=== PATIENT | male | born 1990 | race Caucasian/White ===

== ENCOUNTER 2020-06-30 16:08 | Inpatient (IN) | payer OTHER ==
[~2020-06-30] VITALS: Ht 193 cm; Wt 125.0 kg
[2020-06-30 18:24] LABS: BASOPHILS % (AUTO) 0.3 % (0.0-2.0); EOSINOPHILS % (AUTO) 0.2 % (1.0-6.0); HEMATOCRIT 40.9 % (41-53); HEMOGLOBIN 13.3 g/dL (13.5-17.5); LYMPHOCYTES # (AUTO) 1.8 K/uL (1.0-4.8); LYMPHOCYTES % (AUTO) 8.6 % (22.0-44.0); MEAN CORPUSCULAR HEMOGLOBIN 28.5 pg (26.0-34.0); MEAN CORPUSCULAR HGB CONC 32.4 G/dL (31.0-37.0); MEAN CORPUSCULAR VOLUME 88 fL (80-100); MONOCYTES # (AUTO) 1.4 K/uL (0.1-1.0); MONOCYTES % (AUTO) 6.8 % (2.0-9.0); NEUTROPHILS # (AUTO) 17.2 K/uL (1.8-7.7); NEUTROPHILS % (AUTO) 84.1 % (40.0-70.0); PLATELET COUNT (AUTO) 314 K/uL (150-450); RED BLOOD CELL COUNT(AUTO) 4.66 MIL/uL (4.50-5.90); RED CELL DISTRIBUTION WIDTH 15.2 % (11.5-14.5)
[2020-06-30 18:34] LABS: ANION GAP 7 mmol/L (8-16); CALCIUM, TOTAL 9.3 mg/dL (8.8-10.5); CARBON DIOXIDE 30 mmol/L (22-29); CHLORIDE 103 mmol/L (98-107); CREATININE 0.69 mg/dL (0.60-1.30); GLOMERULAR FILTR. RATE CALC > 60 mL/min (>60); GLUCOSE,RANDOM 97 mg/dL (70-110); POTASSIUM 4.2 mmol/L (3.5-5.1); SODIUM SERUM 140 mmol/L (136-145); UREA NITROGEN, BLOOD 16 mg/dL (7-18)
[2020-06-30 18:42] LABS: ALANINE AMINOTRANSFERASE 88 U/L (12-78); ALBUMIN 3.6 g/dL (3.4-5.0); ALKALINE PHOSPHATASE 87 U/L (46-116); ASPARTATE AMINOTRANSFERASE 49 U/L (15-37); BILIRUBIN,TOTAL 0.8 mg/dL (0.1-1.0); TOTAL PROTEIN, SERUM 7.7 g/dL (6.4-8.2)
[2020-06-30] MEDS ORDERED: CefTRIAXone 1 GM/DEXTROSE 50 ML IV ONE (18:45)
[2020-06-30] MEDS ORDERED: SODIUM CHLORIDE 0.9% 3,400 ML IV ONE (18:45)
[2020-06-30] MEDS ORDERED: VANCOMYCIN HCL 1 GM/D5% WATER 200 ML IV ONE (18:45)
[2020-06-30] MEDS: ACETAMINOPHEN 325 MG TABLET PO ONE ×2 (19:16→19:18)
[2020-06-30] MEDS ORDERED: SODIUM CHLORIDE 0.9% 1,000 ML IV ONE (19:45)
[2020-06-30] MEDS ORDERED: ACETAMINOPHEN 325 MG TABLET PO PRN (19:45)
[2020-06-30] MEDS ORDERED: ONDANSETRON HCL 4 MG/2 ML VIAL IVP PRN (19:45)
[2020-06-30] MEDS ORDERED: ZOLPIDEM TARTRATE 5 MG TABLET PO PRN (19:45)
[2020-06-30 20:02] LABS: COVID AG,FIA SOURCE NASAL SWAB
[2020-06-30 21:30] VITALS: BP 123/72
[2020-06-30] MEDS: DOCUSATE SODIUM 100 MG CAPSULE PO SCH (21:54)
[2020-06-30 23:35] VITALS: BP 126/65
[2020-07-01] MEDS: HEPARIN SODIUM,PORCINE 5,000 UNITS/ML VIAL SQ SCH ×4 (00:38→23:37)
[2020-07-01 04:40] VITALS: BP 101/59
[2020-07-01 06:19] LABS: BASOPHILS % (AUTO) 0.4 % (0.0-2.0); EOSINOPHILS % (AUTO) 0 % (1.0-6.0); HEMATOCRIT 38.2 % (41-53); HEMOGLOBIN 12.6 g/dL (13.5-17.5); LYMPHOCYTES # (AUTO) 2.3 K/uL (1.0-4.8); MEAN CORPUSCULAR HEMOGLOBIN 29.5 pg (26.0-34.0); MEAN CORPUSCULAR VOLUME 89 fL (80-100); MONOCYTES # (AUTO) 0.9 K/uL (0.1-1.0); MONOCYTES % (AUTO) 5.7 % (2.0-9.0); NEUTROPHILS # (AUTO) 12.2 K/uL (1.8-7.7); NEUTROPHILS % (AUTO) 78.9 % (40.0-70.0); PLATELET COUNT (AUTO) 235 K/uL (150-450); RED BLOOD CELL COUNT(AUTO) 4.28 MIL/uL (4.50-5.90); RED CELL DISTRIBUTION WIDTH 15.5 % (11.5-14.5)
[2020-07-01] MEDS: FAMOTIDINE 20 MG TABLET PO SCH (08:14)
[2020-07-01] MEDS: DOCUSATE SODIUM 100 MG CAPSULE PO SCH ×2 (08:14→20:09)
[2020-07-01 08:25] VITALS: BP 94/53
[2020-07-01 11:07] VITALS: BP 109/64
[2020-07-01] MEDS ORDERED: VANCOMYCIN HCL 1 GM/D5% WATER 200 ML IV ONE ×2 (12:00→18:00)
[2020-07-01] MEDS ORDERED: SODIUM CHLORIDE 0.9% 0 ML ONE (12:26)
[2020-07-01] MEDS ORDERED: SODIUM CHLORIDE 0.9% 500 ML IV ONE (12:28)
[2020-07-01 15:09] LABS: APPEARANCE,URINE CLOUDY (CLEAR); BILIRUBIN,URINE NEGATIVE (NEGATIVE); GLUCOSE, URINE (UA) NEGATIVE (NEGATIVE); KETONES,URINE NEGATIVE (NEGATIVE); LEUKOCYTE ESTERASE ,URINE NEGATIVE (NEGATIVE); NITRATE,URINE NEGATIVE (NEGATIVE); OCCULT BLOOD,URINE NEGATIVE (NEGATIVE); PH,URINE 7.5 (5.0-8.0); PROTEIN,URINE TRACE (NEGATIVE)
[2020-07-01 15:14] LABS: AMPHET/METH SCREEN,URINE POSITIVE (NEGATIVE); BARBITURATE SCREEN, URINE NEGATIVE (NEGATIVE); BENZODIAZEPINES SCREEN,URINE NEGATIVE (NEGATIVE); CANNABINOID SCREEN,URINE NEGATIVE (NEGATIVE); COCAINE SCREEN,URINE NEGATIVE (NEGATIVE); METHADONE SCREEN, URINE NEGATIVE (NEGATIVE); OPIATE SCREEN,URINE NEGATIVE (NEGATIVE)
[2020-07-01 15:15] LABS: PHENCYCLIDINE SCREEN,URINE NEGATIVE (NEGATIVE)
[2020-07-01 15:27] LABS: BACTERIA,URINE Few /HPF (None Seen); RBC,URINE None Seen /HPF (0-2); WBC,URINE 0-2 /HPF (0-5)
[2020-07-01 15:28] LABS: SQUAMOUS EPITHELIAL CELL,UR Rare /LPF (None Seen)
[2020-07-01 16:24] VITALS: BP 114/67
[2020-07-01 20:30] VITALS: BP 114/66
[2020-07-01] MEDS: VANCOMYCIN HCL 1.5 GM in DEXTROSE 5%-WATER 250 ML IV SCH (23:37)
[2020-07-02 04:55] VITALS: BP 116/64
[2020-07-02 07:53] VITALS: BP 142/88
[2020-07-02] MEDS: VANCOMYCIN HCL 1.5 GM in DEXTROSE 5%-WATER 250 ML IV SCH (08:00)
[2020-07-02] MEDS: HEPARIN SODIUM,PORCINE 5,000 UNITS/ML VIAL SQ SCH ×2 (08:00→16:00)
[2020-07-02] MEDS: DOCUSATE SODIUM 100 MG CAPSULE PO SCH ×2 (08:25→20:56)
[2020-07-02] MEDS: FAMOTIDINE 20 MG TABLET PO SCH (08:25)
[2020-07-02] MEDS ORDERED: LORazepam 2 MG/ML VIAL IVP PRN (12:30)
[2020-07-02] MEDS ORDERED: LOPERAMIDE HCL 2 MG CAPSULE PO PRN (12:30)
[2020-07-02] MEDS ORDERED: DICYCLOMINE HCL 10 MG CAPSULE PO PRN (12:30)
[2020-07-02] MEDS ORDERED: METOCLOPRAMIDE HCL 5 MG/ML 2 ML VIAL IVP PRN (12:30)
[2020-07-02] MEDS: ACETAMINOPHEN/CODEINE 300-15 MG TABLET PO PRN (20:55)
[2020-07-02 21:00] VITALS: BP 128/61
[2020-07-02] MEDS ORDERED: TEMAZEPAM 15 MG CAPSULE PO SCH (21:00)
[2020-07-02 23:24] VITALS: BP 124/72
[2020-07-03 05:20] VITALS: BP 130/73
[2020-07-03 07:36] VITALS: BP 121/77
[2020-07-03] MEDS: FAMOTIDINE 20 MG TABLET PO SCH (08:03)
[2020-07-03] MEDS: DOCUSATE SODIUM 100 MG CAPSULE PO SCH (08:03)
[2020-07-03] MEDS: HEPARIN SODIUM,PORCINE 5,000 UNITS/ML VIAL SQ SCH ×2 (08:03)
[2020-07-03] MEDS: ACETAMINOPHEN/CODEINE 300-15 MG TABLET PO PRN (08:14)
[2020-07-03] MEDS ORDERED: LEVOFLOXACIN 750 MG TABLET PO SCH (09:00)
[2020-07-03] MEDS ORDERED: LEVO750T68 PO (12:07)
== END 2020-07-03 15:05 | DRG 603 ==
LOC: EMS 16:08 → 6S 19:33
PROVIDERS: ADMIT Internal Medicine; ATTEND Internal Medicine
DX: L03.115 Cellulitis of right lower limb (principal); R65.10 Systemic inflammatory response syndrome (SIRS) of non-infectious origin without acute organ dysfunction; I89.0 Lymphedema, not elsewhere classified; J45.909 Unspecified asthma, uncomplicated; Z53.20 Procedure and treatment not carried out because of patient's decision for unspecified reasons; Z87.891 Personal history of nicotine dependence; Z20.822 Contact with and (suspected) exposure to COVID-19; F19.10 Other psychoactive substance abuse, uncomplicated
CPT/HCPCS: 83605; 85379; 87040; 87426; 93971; 99285; A9575; G0480; J0696; J1644; J3370; J7030; J7040; J7050; J7060; 36415-L1; 36415-TC; 71045-TC

== ENCOUNTER 2021-05-05 19:37 | Inpatient (IN) | payer OTHER ==
[~2021-05-05] VITALS: Ht 193 cm; Wt 114.6 kg
[~2021-05-05 19:37] MED LIST: LEVO750T68 PO
[2021-05-05] MEDS ORDERED: VANCOMYCIN HCL 1 GM/D5% WATER 200 ML IV ONE (20:30)
[2021-05-05] MEDS ORDERED: 0.9% SODIUM CHLORIDE 10 ML SYRINGE IVP PRN (20:30)
[2021-05-05] MEDS ORDERED: ACETAMINOPHEN 500 MG TABLET PO ONE (20:30)
[2021-05-05] MEDS ORDERED: CLINDAMYCIN 600 MG/D5% WATER 50 ML IV ONE (20:30)
[2021-05-05] MEDS ORDERED: POTA10PI PO (21:17)
[2021-05-05] MEDS ORDERED: FURO20 PO (21:17)
[2021-05-05 21:36] LABS: COVID AG,FIA SOURCE NASOPHARYNGEAL
[2021-05-05 21:59] LABS: BASOPHILS % (AUTO) 0.9 % (0.0-2.0); EOSINOPHILS % (AUTO) 3.5 % (1.0-6.0); HEMOGLOBIN 14.5 g/dL (13.5-17.5); LYMPHOCYTES % (AUTO) 32.6 % (22.0-44.0); MEAN CORPUSCULAR HEMOGLOBIN 30.2 pg (26.0-34.0); MEAN CORPUSCULAR HGB CONC 33.8 G/dL (31.0-37.0); MEAN CORPUSCULAR VOLUME 89 fL (80-100); MONOCYTES # (AUTO) 0.9 K/uL (0.1-1.0); MONOCYTES % (AUTO) 9.4 % (2.0-9.0); NEUTROPHILS # (AUTO) 4.9 K/uL (1.8-7.7); NEUTROPHILS % (AUTO) 53.6 % (40.0-70.0); PLATELET COUNT (AUTO) 256 K/uL (150-450); RED BLOOD CELL COUNT(AUTO) 4.81 MIL/uL (4.50-5.90); RED CELL DISTRIBUTION WIDTH 16.7 % (11.5-14.5)
[2021-05-05 22:05] LABS: ANION GAP 3 mmol/L (8-16); CALCIUM, TOTAL 8.8 mg/dL (8.8-10.5); CARBON DIOXIDE 31 mmol/L (22-29); CHLORIDE 106 mmol/L (98-107); CREATININE 0.84 mg/dL (0.60-1.30); GLOMERULAR FILTR. RATE CALC > 60 mL/min (>60); GLUCOSE,RANDOM 72 mg/dL (70-110); POTASSIUM 4.4 mmol/L (3.5-5.1); SODIUM SERUM 140 mmol/L (136-145); UREA NITROGEN, BLOOD 15 mg/dL (7-18)
[2021-05-05 22:13] LABS: LACTIC ACID 0.9 mmol/L (0.4-2.0)
[2021-05-05] MEDS ORDERED: ONDANSETRON HCL 4 MG/2 ML VIAL IVP PRN (22:15)
[2021-05-05 22:19] LABS: ALANINE AMINOTRANSFERASE 95 U/L (12-78); ALBUMIN 3.7 g/dL (3.4-5.0); ALKALINE PHOSPHATASE 65 U/L (46-116); ASPARTATE AMINOTRANSFERASE 42 U/L (15-37); BILIRUBIN,TOTAL 0.6 mg/dL (0.1-1.0); TOTAL PROTEIN, SERUM 7.5 g/dL (6.4-8.2)
[2021-05-05 23:44] VITALS: BP 107/73
[2021-05-06] MEDS ORDERED: SODIUM CHLORIDE 0.9% 500 ML IV ONE (00:12)
[2021-05-06] MEDS ORDERED: VANCOMYCIN HCL 1 GM/D5% WATER 200 ML IV ONE (00:30)
[2021-05-06] MEDS: HEPARIN SODIUM,PORCINE 5,000 UNITS/ML VIAL SQ SCH ×4 (00:50→23:39)
[2021-05-06] MEDS: CefTRIAXone 1 GM/DEXTROSE 50 ML IV SCH (03:40)
[2021-05-06] MEDS: ACETAMINOPHEN 325 MG TABLET PO PRN ×3 (04:45→20:45)
[2021-05-06 05:13] VITALS: BP 116/70
[2021-05-06 08:42] VITALS: BP 105/69
[2021-05-06] MEDS: VANCOMYCIN HCL 1.5 GM in DEXTROSE 5%-WATER 250 ML IV SCH ×3 (08:58→23:39)
[2021-05-06 16:36] VITALS: BP 124/79
[2021-05-06] MEDS: BuPROPion HCL 100 MG SR TABLET PO SCH (20:39)
[2021-05-06 20:50] VITALS: BP 120/71
[2021-05-07] MEDS: CefTRIAXone 1 GM/DEXTROSE 50 ML IV SCH (02:06)
[2021-05-07 04:27] VITALS: BP 113/38
[2021-05-07 08:28] VITALS: BP 114/72
[2021-05-07 08:54] LABS: ANION GAP 15 mmol/L (8-16); CALCIUM, TOTAL 8.8 mg/dL (8.8-10.5); CARBON DIOXIDE 28 mmol/L (22-29); CHLORIDE 103 mmol/L (98-107); CREATININE 0.69 mg/dL (0.60-1.30); GLOMERULAR FILTR. RATE CALC > 60 mL/min (>60); GLUCOSE,RANDOM 87 mg/dL (70-110); POTASSIUM 4.2 mmol/L (3.5-5.1); SODIUM SERUM 146 mmol/L (136-145); UREA NITROGEN, BLOOD 9 mg/dL (7-18); VANCOMYCIN,RANDOM 14.5 mcg/mL (25.0-50.0)
[2021-05-07] MEDS: BuPROPion HCL 100 MG SR TABLET PO SCH ×2 (09:16→22:05)
[2021-05-07] MEDS: FUROSEMIDE 20 MG TABLET PO SCH (09:16)
[2021-05-07] MEDS: HEPARIN SODIUM,PORCINE 5,000 UNITS/ML VIAL SQ SCH ×2 (09:16→16:05)
[2021-05-07] MEDS: VANCOMYCIN HCL 1.5 GM in DEXTROSE 5%-WATER 250 ML IV SCH ×2 (09:17→16:06)
[2021-05-07] MEDS: HYDROCODONE/ACETAMINOPHEN 5-325 MG TABLET PO PRN ×2 (13:06→22:05)
[2021-05-07 16:12] VITALS: BP 118/73
[2021-05-07] MEDS: ACETAMINOPHEN 325 MG TABLET PO PRN (16:26)
[2021-05-07 20:10] VITALS: BP 109/71
[2021-05-08] MEDS: VANCOMYCIN HCL 1.5 GM in DEXTROSE 5%-WATER 250 ML IV SCH ×3 (00:31→16:00)
[2021-05-08] MEDS: HEPARIN SODIUM,PORCINE 5,000 UNITS/ML VIAL SQ SCH ×4 (00:32→23:55)
[2021-05-08] MEDS ORDERED: SODIUM CHLORIDE 0.9% 500 ML IV ONE (00:37)
[2021-05-08] MEDS: CefTRIAXone 1 GM/DEXTROSE 50 ML IV SCH (02:00)
[2021-05-08 05:25] VITALS: BP 126/79
[2021-05-08] MEDS: FUROSEMIDE 20 MG TABLET PO SCH (07:47)
[2021-05-08] MEDS: HYDROCODONE/ACETAMINOPHEN 5-325 MG TABLET PO PRN ×2 (07:47→16:21)
[2021-05-08 08:34] VITALS: BP 153/86
[2021-05-08] MEDS: BuPROPion HCL 100 MG SR TABLET PO SCH ×2 (09:06→20:08)
[2021-05-08 12:23] VITALS: BP 116/76
[2021-05-08] MEDS: ACETAMINOPHEN 325 MG TABLET PO PRN (14:00)
[2021-05-08 16:46] VITALS: BP 117/85
[2021-05-08 20:27] VITALS: BP 117/83
[2021-05-08] MEDS ORDERED: DOXYCYCLINE HYCLATE 100 MG TABLET PO SCH (22:15)
[2021-05-09] MEDS: VANCOMYCIN HCL 1.5 GM in DEXTROSE 5%-WATER 250 ML IV SCH ×4 (00:09→23:25)
[2021-05-09] MEDS: HYDROCODONE/ACETAMINOPHEN 5-325 MG TABLET PO PRN ×3 (00:15→20:08)
[2021-05-09 00:44] VITALS: BP 128/66
[2021-05-09] MEDS: CefTRIAXone 1 GM/DEXTROSE 50 ML IV SCH (02:29)
[2021-05-09 08:27] VITALS: BP 104/70
[2021-05-09] MEDS: BuPROPion HCL 100 MG SR TABLET PO SCH ×2 (10:47→20:07)
[2021-05-09] MEDS: FUROSEMIDE 20 MG TABLET PO SCH (10:48)
[2021-05-09] MEDS: HEPARIN SODIUM,PORCINE 5,000 UNITS/ML VIAL SQ SCH ×3 (10:48→23:25)
[2021-05-09 17:01] VITALS: BP 115/75
[2021-05-09] MEDS: ACETAMINOPHEN 325 MG TABLET PO PRN (18:44)
[2021-05-09 21:19] VITALS: BP 127/71
[2021-05-10] MEDS: CefTRIAXone 1 GM/DEXTROSE 50 ML IV SCH (01:19)
[2021-05-10 01:40] VITALS: BP 116/72
[2021-05-10] MEDS: HYDROCODONE/ACETAMINOPHEN 5-325 MG TABLET PO PRN ×3 (04:19→21:46)
[2021-05-10 05:26] VITALS: BP 116/62
[2021-05-10 08:06] VITALS: BP 116/67
[2021-05-10] MEDS: VANCOMYCIN HCL 1.5 GM in DEXTROSE 5%-WATER 250 ML IV SCH ×4 (10:00→23:28)
[2021-05-10] MEDS: HEPARIN SODIUM,PORCINE 5,000 UNITS/ML VIAL SQ SCH ×3 (10:01→23:28)
[2021-05-10] MEDS: BuPROPion HCL 100 MG SR TABLET PO SCH ×2 (10:01→20:00)
[2021-05-10] MEDS: FUROSEMIDE 20 MG TABLET PO SCH (10:01)
[2021-05-10 14:45] LABS: ANION GAP 8 mmol/L (8-16); CALCIUM, TOTAL 9.4 mg/dL (8.8-10.5); CARBON DIOXIDE 29 mmol/L (22-29); CHLORIDE 101 mmol/L (98-107); CREATININE 0.85 mg/dL (0.60-1.30); GLOMERULAR FILTR. RATE CALC > 60 mL/min (>60); GLUCOSE,RANDOM 93 mg/dL (70-110); POTASSIUM 4.4 mmol/L (3.5-5.1); SODIUM SERUM 138 mmol/L (136-145); UREA NITROGEN, BLOOD 15 mg/dL (7-18)
[2021-05-10 16:20] VITALS: BP 126/68
[2021-05-10] MEDS: ACETAMINOPHEN 325 MG TABLET PO PRN (16:55)
[2021-05-10 20:04] VITALS: BP 110/65
[2021-05-11] MEDS: CefTRIAXone 1 GM/DEXTROSE 50 ML IV SCH (02:12)
[2021-05-11] MEDS ORDERED: SODIUM CHLORIDE 0.9% 500 ML IV ONE (02:12)
[2021-05-11 04:35] VITALS: BP 119/74
[2021-05-11] MEDS: HYDROCODONE/ACETAMINOPHEN 5-325 MG TABLET PO PRN ×2 (06:42→16:31)
[2021-05-11 08:49] VITALS: BP 129/68
[2021-05-11] MEDS: ACETAMINOPHEN 325 MG TABLET PO PRN (10:14)
[2021-05-11] MEDS: VANCOMYCIN HCL 1.5 GM in DEXTROSE 5%-WATER 250 ML IV SCH ×2 (10:15→16:36)
[2021-05-11] MEDS: FUROSEMIDE 20 MG TABLET PO SCH (10:15)
[2021-05-11] MEDS: BuPROPion HCL 100 MG SR TABLET PO SCH (10:15)
[2021-05-11] MEDS: HEPARIN SODIUM,PORCINE 5,000 UNITS/ML VIAL SQ SCH ×2 (10:16→16:35)
[2021-05-11] MEDS ORDERED: BUPR100T6 PO (16:14)
[2021-05-11] MEDS ORDERED: ACET-3207 PO (16:16)
== END 2021-05-11 19:11 | DRG 603 ==
LOC: EMS 21:19 → 6S 22:00
PROVIDERS: ADMIT Internal Medicine; ATTEND Internal Medicine
PROC: 05HB33Z Insertion of Infusion Device into Right Basilic Vein, Percutaneous Approach (ICD-10-PCS; principal; 2021-05-08)
DX: L03.031 Cellulitis of right toe (principal); E87.3 Alkalosis; F17.210 Nicotine dependence, cigarettes, uncomplicated; I89.0 Lymphedema, not elsewhere classified; Z20.822 Contact with and (suspected) exposure to COVID-19; W22.8XXA Striking against or struck by other objects, initial encounter; Z86.718 Personal history of other venous thrombosis and embolism; Z79.899 Other long term (current) drug therapy
CPT/HCPCS: 36245; 36569; 73718; 76937; 80048; 80053; 80202; 83605; 84145; 84550; 85025; 87040; 93971; 99285; J0696; J1644; J3370; J3490; J7040; J7060